=== PATIENT | male | born 1975 | race Caucasian/White ===

== ENCOUNTER 2021-09-22 19:39 | Emergency (ER) | payer OTHER, SELFPAY ==
--- NOTE | ~2021-09-22 | XR_ITS ---
EXAM: XR foot LT min 3V DATE: 09/22/2021 20:27 HISTORY: pain, swelling . COMPARISON: None available. FINDINGS: Normal mineralization. No fracture or dislocation. No lytic or blastic lesion. Scattered d egenerative changes. No erosion or periosteal change. Soft tissues within normal limits. IMPRESSION: No acute osseous finding in the left foot. Reviewed, dictated and finalized at location K.
--- NOTE | ~2021-09-22 | XR_ITS ---
EXAM: XR toe 1st RT min 2V DATE: 09/22/2021 20:28 HISTORY: stubbed toe . COMPARISON: None available. FINDINGS: Normal mineralization. No fracture or dislocation. No lytic or blastic lesion. Joint space s are maintained. No erosion or periosteal change. Soft tissues within normal limits. IMPRESSION: No acute osseous finding in the right first digit. Reviewed, dictated and finalized at location K.
[2021-09-22 19:42] VITALS: BP 132/90; PULSE 99; RESP 17; TEMP 36; O2SAT 100
--- NOTE | 2021-09-22 20:09 | ED.LOWEXIN ---
HPI - Extremity Injury (Lower) General Chief Complaint: Extremity Injury, Lower Stated Complaint: left foot injury Time Seen by Provider: 09/22/21 19:50 Source: patient and RN notes reviewed Mode of arrival: ambulatory Limitations: no limitations History of Present Illness HPI Narrative: This is a 46 year old male who presents for evaluation left foot pain. Patient states 1 week ago he noticed a tender area of swelling to medial left sole of his foot. He states walking causes shooting pain in his foot. He also reports having blister to his small toe on his left foot. This blister is now unroofed without prurulent drainage. He is unsure of any trauma but he states he walks bare foot. He also reports he stubbed his right great toe last night. He has small wound to his right great toe. He has not taken anything for his pain. His last tetanus has been in past 5 years. Related Data Home Medications Medication Instructions Recorded Confirmed metoprolol tartrate 09/22/21 Allergies Allergy/AdvReac Type Severity Reaction Status Date / Time phenytoin [From Dilantin] Allergy Hives Verified 09/22/21 19:40 Review of Systems Review of Systems: All systems reviewed & are unremarkable except as noted in HPI and below PMFSH Past Medical History Medical History Asthma HTN (hypertension) Surgical History Surgical History History of placement of ear tubes Family History Family History Mother Hypertension Carcinoma of colon Carcinoid tumor Father Diabetes mellitus Hypertension Sibling Asthma Hypertension Grandparent Diabetes mellitus Heart disease Hypertension Social History Social History Tobacco type: smokeless tobacco Smokeless tobacco user: chewing tobacco Alcohol intake: current Drinks per week: 7 Substance use: never Substance use type: does not use Gender identity (if verbalized by the patient): Male Exam Const: General: no acute distress and alert Orientation/consciousness: patient oriented x3 Eyes: EOM: EOMs intact bilaterally Resp: Effort & Inspection: normal respiratory effort and no retractions Cardio: Rate: regular rate Rhythm: regular rhythm Heart sounds: no murmurs Neuro: General: patient oriented x3, moves all extremities and CN's II-XI intact bilaterally Extrem: Other: right great toe with superficial scab with mild erythema; left foot- medial with tender medial rope like structure to mid plantar surface, and 1 cm fluid filled cyst Psych: Mental Status: mental status grossly normal Affect: normal affect Course Reevaluation(s) Reevaluation #1: Patient presented with pain area of swelling to left medial plantar surface. no erythema. Patient was agreeable to trying to aspirate fluid. I cleaned plantar surface of foot with chlorihexidine and then betadine swabs. I attempted to aspirate by introducing 21 gauge needle into area. aspirate small amount of serous fluid. no purulent fluid. I discussed with patient he will keep area clean . Apply warm compresses and take NSAIDs. No acute fracture no xray. right great toe wound is slightly erythematous. Will place on antibiotics Date: 09/22/21 Time: 21:12 Vital Signs Vital signs: Vital Signs Temperature 96.8 F L 09/22/21 19:42 Pulse Rate 99 09/22/21 19:42 Respiratory Rate 17 09/22/21 19:42 Blood Pressure 132/90 09/22/21 19:42 Pulse Oximetry 100 09/22/21 19:42 Temperature 96.8 F L 09/22/21 19:42 Pulse Rate 89 09/22/21 21:26 Respiratory Rate 14 09/22/21 21:26 Blood Pressure 139/96 H 09/22/21 21:26 Pulse Oximetry 100 09/22/21 21:26 MDM - Extremity Injury (Lower) Imaging Data Radiologist's impression: ITS Impressions Foot X-Ray 09/22/21 20:52
[2021-09-22] MEDS: NAPROXEN 500 MG TABLET PO (20:13)
[2021-09-22 21:26] VITALS: BP 139/96; PULSE 89; RESP 14; O2SAT 100
== END 2021-09-22 21:28 | disposition home or self-care (01) ==
PROVIDERS: Emergency Provider General Practice
DX: M79.672 Pain in left foot (principal); S90.111A Contusion of right great toe without damage to nail, initial encounter; J45.909 Unspecified asthma, uncomplicated; I10 Essential (primary) hypertension; F17.220 Nicotine dependence, chewing tobacco, uncomplicated; W22.8XXA Striking against or struck by other objects, initial encounter
CPT/HCPCS: 73630; 73660; 99284; A9270